=== PATIENT | female | born 1980 | race Hispanic/Latino ===

== ENCOUNTER 2018-07-07 20:32 | Emergency (ER) | payer BC ==
[~2018-07-07] VITALS: Ht 162.6 cm; Wt 62.1 kg
--- OUTSIDE RECORDS SUMMARY | 2018-07-07 20:37 | XMS REPORT | Clinical Summary ---
Author Author [facility] Organization [facility] Address Unknown Phone Unavailable Care Team Providers Care Supervisor [employer] Name Role Phone Florecita Marte MD PCP Unavailable Allergies No Known Allergies Medications No known medications Active Problems Not on file Family History Medical History Relation Name Comments GERD Father Relation Name Status Comments Father Social History Date Tobacco Use Types Packs/Day Years Used Never Smoker Alcohol Use Drinks/Week oz/Week Comments Yes Sex Assigned at Date Recorded Not on file Industry Job Start Date Occupation Not on file Not on file Not on file Travel End Travel History Travel Start No recent travel history available. Last Filed Vital Signs Not on file Plan of Treatment Health Maintenance Due Date Last Done Comments CERVICAL CANCER SCREENING 2000 INFLUENZA VACCINE 11/12/2017 01/12/2013 Results Not on fileafter 07/06/2017 Insurance Payer Benefit Subscriber ID Type Phone Address Plan / Group BCBS BCBS xxxxxxxxxxxx PPO CHOICE PPO/[employer]OS[employer]ERSON PPO Advance Directives Patient has advance care planning documents on file. For more information, marge moya contact: Phillip Nunez [address] [place] [address]
== END 2018-07-07 22:20 | disposition home or self-care (01) ==
LOC: FSED 20:32
DX: Z77.021 Contact with and (suspected) exposure to benzene (principal); R51 Headache
CPT/HCPCS: 99282